=== PATIENT | female | born 1985 | race Caucasian/White ===

== ENCOUNTER 2016-10-06 12:47 | Inpatient (IN) ==
--- NOTE | 2016-10-06 13:30 | PROVIDER DOCUMENTATION ---
HPI-General Adult - General Chief Complaint: Altered Mental Status Stated Complaint: ams,possibe overdose Time Seen by Provider: 10/06/16 13:07 Source: patient Allergies/Adverse Reactions: Patient Allergies Allergy/AdvReac Type Severity Reaction Status Date / Time tetanus immune globulin Allergy RASH Verified 10/06/16 13:03 Home Medications: Home Medication List Medication Instructions Recorded Confirmed Last Taken Type Home Meds Unobtainable 10/06/16 10/06/16 Unknown History - History of Present Illness -Gen Adult Nature of Presenting Problems: Pt is 31 y/o F presents to the ED with AMS and possible overdose. Pt was dropped off by bystander at the ED. Pt was found unresponsive in the street. Pt had marijuana and meth in possession on arrival. Pt will not answer questions. Pt keeps repeating she is hot. Location of Pain/Injury: reports: none Pain Radiation: reports: no radiation Quality of Pain: reports: none Onset/Duration: reports: just prior to arrival Timing: reports: still present Context/Activities at Onset: reports: light activity Modifying Factors: improves with: nothing Associated Symptoms: reports: anxiety. denies: arm pain, back/neck pain, chest pain, constipation, cough, diaphoresis, diarrhea, dizziness, EENT symptoms, fatigue, fever/chills, genitourinary problems, headaches, heartburn, joint pain , loss of appetite, malaise, muscle aches, sinus congestion/drainage, nausea, rash, seizure, shortness of breath, sensory/motor loss, pain with inspiration, swelling/mass in abdomen, syncope, vomiting, weakness, trouble walking Similar Symptoms Previously?: No Recently seen or treated by another doctor?: No Review of Systems - Adult - REVIEW OF SYSTEMS - ADULT Constitutional: denies: chills, fever Eyes: denies: blurred vision, double vision Ears, Nose, Mouth & Throat: denies: ear pain, nose pain, throat pain Cardiovascular: reports: irregular heart rate (tachy). denies: chest pain, heart murmur Respiratory: denies: cough, shortness of breath, wheezing Gastrointestinal: denies: abdominal pain, diarrhea, nausea, vomiting Genitourinary: denies: dysuria, hematuria Musculoskeletal: denies: bone pain, joint pain, neck pain Integumentary: denies: hives, itching Neurological: denies: dizziness/vertigo, headache/migraines Psychiatric: reports: anxiety, alcohol/drug dependence. denies: suicidal thoughts Endocrine: reports: no symptoms reported Hematologic/Lymphatic: reports: no symptoms reported Allergic/Immunologic: reports: no symptoms reported All Other Systems: Reviewed and Negative Past History - Adult - PAST MEDICAL HISTORY-ADULT Review of Records: reports: Nursing Assessment Review, Medications Reviewed, Social history reviewed & non-contributory. Major Childhood Illnesses: reports: denies history Cardiovascular: reports: denies history Respiratory: reports: denies history Gastrointestinal: reports: denies history Obstetrical/Gynecological: reports: denies history Genitourinary: reports: denies history Musculoskeletal: reports: denies history Neurological: reports: denies history Endocrine/Immune: reports: denies history Other Conditions: reports: denies history - PRIOR SURGERIES/PROCEDURES Surgical/Procedure History: reports: appendectomy, hysterectomy, , tonsillectomy, breast, other - PRIOR HOSPITALIZATIONS Prior Hospitalizations: reports: for other non-related - IMMUNIZATION STATUS Childhood Immunizations: See Nurse Assessment Flu Vaccine: See Nurse Assessment - FAMILY HISTORY Family History: reviewed, not pertinent - SOCIAL HISTORY Smoking: cigarettes, greater than 1 pack/day Provider spent 3-5 mins advising pt. on dangers of tobacco.: Discussed manners to quit use, and f/u contacts for add'l counseling. Substance Use: marijuana, other (meth) Physical Exam-General - CONSTITUTIONAL General Appearance: anxious, combative (mild). negative: appears well (ill in appearance) - EYES Eyes: pink conjunctivae, fundi clear, no AV nicking - HEAD, EARS, NOSE, MOUTH & THROAT HENMT: normocephalic/atraumatic. negative: moist mucous membranes (dry mucous membranes) - NECK Neck: non-tender, full range of motion, supple, normal inspection - RESPIRATORY Respiratory: chest non-tender, lungs clear, normal breath sounds, no pleuratic chest pain, no respiratory distress, no accessory muscle use - CARDIOVASCULAR Cardiovascular: normal peripheral pulses, no edema, no gallop, no JVD, no murmur , tachycardia - GASTROINTESTINAL (ABDOMEN) Abdominal Exam: normal bowel sounds, non tender, soft, no organomegaly, no pulsatile mass - LYMPHATIC Lymphatic: no adenopathy - MUSCULOSKELETAL Back Exam: normal inspection, no CVA tenderness, no vertebral tenderness Extremity: normal range of motion, non-tender, normal gait, normal inspection, no pedal edema - SKIN Integumentary: normal color, normal turgor, warm/dry - NEUROLOGIC Neurologic: grossly normal - PSYCHIATRIC Psych/Mental Status: anxious, disheveled, tearful Progress - PLAN OF CARE/RESULTS Progress/Plan/Lab Results: Orders Category Date Time Status Cardiac Monitoring DIRECTED Care 10/06/16 13:18 Active Finger Stick Blood Sugar (ED) DIRECTED Care 10/06/16 13:18 Active Saline Loc NOW Care 10/06/16 13:18 Active CHEST-1 VIEW [RAD] Stat Exams 10/06/16 13:18 Ordered HEAD W/O CONTRAST [CT] Stat Exams 10/06/16 13:19 Ordered ABG [RESP] Routine Lab 10/06/16 13:18 Ordered ALCOHOL BLOOD Stat Lab 10/06/16 13:18 Ordered CBC WITH ELECTRONIC DIFF [HEME] Stat Lab 10/06/16 13:18 Ordered CK PROFILE [SP CHEM] Stat Lab 10/06/16 13:18 Ordered COMPREHENSIVE METABOLIC PANEL [CHEM] Stat Lab 10/06/16 13:18 Ordered LACTATE, PLASMA [CHEM] Stat Lab 10/06/16 13:18 Ordered [address]IME WITH INR PL [COAG] Stat Lab 10/06/16 13:[address] [COAG] Stat Lab 10/06/16 13:18 Ordered TROPONIN T Stat Lab 10/06/16 13:[address] W/POSS RFLX CULT [URINALYSIS] Stat Lab 10/06/16 13:18 Ordered URINE DRUG SCREEN PL Stat Lab 10/06/16 13:18 Ordered Pulse Oximetry Stat Oth 10/06/16 13:18 Active EKG [EKG] Stat Ther 10/06/16 13:18 Ordered Vital Signs - 24 hr 10/06/16 10/06/16 12:49 13:33 Temperature 97.5 F L Pulse Rate 140 H Respiratory 12 Rate Blood Pressure 169/101 O2 Sat by Pulse 90 L Oximetry Laboratory Tests 10/06/16 10/06/16 10/06/16 12:55 12:55 13:35 WBC RBC Hgb Hct MCV MCH MCHC RDW Std Deviation Plt Count MPV Immature Gran % (Auto) Neut % (Auto) Lymph % (Auto) [place] % (Auto) Eos % (Auto) Baso % (Auto) Immature Gran # (Auto) Neut # (Auto) Lymph # (Auto) [place] # (Auto) Eos # (Auto) Baso # (Auto) PT INR APTT (Factor Assay) Specimen Type Sample Site pH pCO2 pO2 HCO3 Base Excess Oxyhemoglobin ABG O2 Sat (Calculated) ABG O2 Saturation ABG Carboxyhemoglobin ABG Methemoglobin Florentino Test A-a O2 Difference Total Hemoglobin Lactate Blood Gas Modality FiO2 % Sodium 140 Potassium 3.5 Chloride 105 Carbon Dioxide 26 Anion Gap 9 BUN 10 Creatinine 0.6 Estimated GFR/1.73 m2 > 60 BUN/Creatinine Ratio 17 Glucose 209 H Calculated Osmolality 285 Calcium 8.4 L Total Bilirubin < 0.15 L AST 20 ALT 24 Alkaline Phosphatase 68 Creatine Kinase 60 Troponin T Total Protein 7.1 Albumin 4.0 Globulin 3.0 Albumin/Globulin Ratio 1.0 Plasma Lactate Urine Source CLEAN CATCH Urine Color YELLOW Urine Clarity CLEAR Urine pH 5.0 Ur Specific [place] 1.020 Urine Protein 2+(100 mg/dL) A Urine Ketones NEGATIVE Urine Blood NEGATIVE Urine Nitrite NEGATIVE Urine Bilirubin NEGATIVE Urine Urobilinogen NORMAL Urine Microscopic RBC Not Reportable Urine WBC TRACE A Urine Microscopic WBC <10 Ur Epithelial Cells >10 A Urine Glucose NEGATIVE Urine Opiates Screen NONE DETECTED Ur Oxycodone Screen NONE DETECTED Urine Methadone Screen NONE DETECTED Ur Barbituates Screen NONE DETECTED Ur Tricyclics Screen NONE DETECTED Ur Phencyclidine Scrn NONE DETECTED Ur Amphetamines Screen NONE DETECTED U Methamphetamines Scrn PRESUMPTIVE POSITIVE A Urine MDMA Screen NONE DETECTED U Benzodiazepines Scrn NONE DETECTED Urine Cocaine Screen PRESUMPTIVE POSITIVE A U Cannabinoids Screen PRESUMPTIVE POSITIVE A Plasma/Serum Ethyl Alc 10/06/16 10/06/16 10/06/16 13:35 13:35 13:35 WBC RBC Hgb Hct MCV MCH MCHC RDW Std Deviation Plt Count MPV Immature Gran % (Auto) Neut % (Auto) Lymph % (Auto) [place] % (Auto) Eos % (Auto) Baso % (Auto) Immature Gran # (Auto) Neut # (Auto) Lymph # (Auto) [place] # (Auto) Eos # (Auto) Baso # (Auto) PT INR APTT (Factor Assay) Specimen Type Sample Site pH pCO2 pO2 HCO3 Base Excess Oxyhemoglobin ABG O2 Sat (Calculated) ABG O2 Saturation ABG Carboxyhemoglobin ABG Methemoglobin Florentino Test A-a O2 Difference Total Hemoglobin Lactate Blood Gas Modality FiO2 % Sodium Potassium Chloride Carbon Dioxide Anion Gap BUN Creatinine Estimated GFR/1.73 m2 BUN/Creatinine Ratio Glucose Calculated Osmolality Calcium Total Bilirubin AST ALT Alkaline Phosphatase Creatine Kinase Troponin T < 0.010 Total Protein Albumin Globulin Albumin/Globulin Ratio Plasma Lactate 1.3 Urine Source Urine Color Urine Clarity Urine pH Ur Specific [place] Urine Protein Urine Ketones Urine Blood Urine Nitrite Urine Bilirubin Urine Urobilinogen Urine Microscopic RBC Urine WBC Urine Microscopic WBC Ur Epithelial Cells Urine Glucose Urine Opiates Screen Ur Oxycodone Screen Urine Methadone Screen Ur Barbituates Screen Ur Tricyclics Screen Ur Phencyclidine Scrn Ur Amphetamines Screen U Methamphetamines Scrn Urine MDMA Screen U Benzodiazepines Scrn Urine Cocaine Screen U Cannabinoids Screen Plasma/Serum Ethyl Alc 10/06/16 10/06/16 10/06/16 13:35 13:35 13:38 WBC 12.04 H RBC 4.41 Hgb 12.6 Hct 38.6 MCV 87.5 MCH 28.6 MCHC 32.6 L RDW Std Deviation 14.1 Plt Count 343 MPV 10.7 H Immature Gran % (Auto) 0.2 Neut % (Auto) 65.4 Lymph % (Auto) 25.7 [place] % (Auto) 7.0 Eos % (Auto) 1.2 Baso % (Auto) 0.5 Immature Gran # (Auto) 0.03 Neut # (Auto) 7.87 H Lymph # (Auto) 3.10 [place] # (Auto) 0.84 H Eos # (Auto) 0.14 Baso # (Auto) 0.06 PT 12.7 INR 0.92 APTT (Factor Assay) 24.9 Specimen Type ARTERIAL Sample Site R RADIAL pH 7.23 L pCO2 65 H* pO2 63 HCO3 23.3 Base Excess -1.7 Oxyhemoglobin 86.6 L* ABG O2 Sat (Calculated) 15.7 ABG O2 Saturation 91.8 L ABG Carboxyhemoglobin 4.50 H ABG Methemoglobin 1.2 Florentino Test YES A-a O2 Difference 5.0 Total Hemoglobin 12.9 Lactate 1.40 Blood Gas Modality ROOM AIR FiO2 % 21.0 Sodium Potassium Chloride Carbon Dioxide Anion Gap BUN Creatinine Estimated GFR/1.73 m2 BUN/Creatinine Ratio Glucose Calculated Osmolality Calcium Total Bilirubin AST ALT Alkaline Phosphatase Creatine Kinase Troponin T Total Protein Albumin Globulin Albumin/Globulin Ratio Plasma Lactate Urine Source Urine Color Urine Clarity Urine pH Ur Specific [place] Urine Protein Urine Ketones Urine Blood Urine Nitrite Urine Bilirubin Urine Urobilinogen Urine Microscopic RBC Urine WBC Urine Microscopic WBC Ur Epithelial Cells Urine Glucose Urine Opiates Screen Ur Oxycodone Screen Urine Methadone Screen Ur Barbituates Screen Ur Tricyclics Screen Ur Phencyclidine Scrn Ur Amphetamines Screen U Methamphetamines Scrn Urine MDMA Screen U Benzodiazepines Scrn Urine Cocaine Screen U Cannabinoids Screen Plasma/Serum Ethyl Alc - EKG 1 Time of EKG reading by physician:: 13:46 EKG Read and Signed by:: Lux Jha EKG Interpretation (*Must complete 3 of following elements*): Abnormal Rate: 109 Rhythm: sinus tachycardia Comments: otherwise normal ECG - XRAY 1 XRAY: Bilateral XRAY Study: Chest Impression: Normal XRAY Interpretation: NAD - CT/MRI 1 CT Study: Head Impression: Normal CT Results: negative - CONSULTS/PCP/HOSPITALIST Notification #1 *Consult/PCP/Hospitalist*: Dr. Hunter Time Discussed: 14:29 (Dr. Hunter accepted admit ) Reason/Comments: Dr. Jha consulted with Dr. Hunter about admit of PT Consult Disposition: Admit Departure - Departure Time of Disposition Order: 14:23 DIAGNOSIS: Metabolic acidosis, Drug abuse Altered mental status Qualifiers: Altered mental status type: unspecified Qualified Code(s): R41.82 - Altered mental status, unspecified Disposition: ADMITTED INPATIENT 09 Certified Medical Emergency: Emergent Condition: Stable Attestation - Scribe Verification/Attestation Scribe:: Nessa Valle Acting as Scribe for:: Lux Jha Scribe documention review:: This chart was documented by a scribe and accurately reflects the service the provider performed and the decisions made by the provider.
[2016-10-06 13:39] LABS: URINE CULTURE PL NEEDED? NO; URINE SOURCE CLEAN CATCH
[2016-10-06 13:43] LABS: BILIRUBIN URINE NEGATIVE (NEGATIVE); BLOOD URINE NEGATIVE (NEGATIVE); CLARITY CLEAR (CLEAR); COLOR YELLOW; GLUCOSE URINE NEGATIVE (NEGATIVE); LEUKOCYTES URINE TRACE (NEGATIVE); NITRITE URINE NEGATIVE (NEGATIVE); PROTEIN URINE 2+(100 mg/dL) mg/dL (NEGATIVE); UROBILINOGEN URINE NORMAL
[2016-10-06 13:44] LABS: URINE EPITHELIAL CELLS >10 /HPF (<10); URINE WBC <10 /HPF (<10)
[2016-10-06 13:45] LABS: MANUAL DIFF NEEDED? NO
[2016-10-06 13:46] LABS: UR AMPHETAMINES QUAL NONE DETECTED (NONE DETECT); UR BARBITUATES QUAL NONE DETECTED (NONE DETECT); UR BENZODIAZEPIN QUAL NONE DETECTED (NONE DETECT); UR CANNABINOIDS QUAL PRESUMPTIVE POSITIVE (NONE DETECT); UR COCAINE QUAL PRESUMPTIVE POSITIVE (NONE DETECT); UR MDMA QUAL NONE DETECTED (NONE DETECT); UR METHADONE QUAL NONE DETECTED (NONE DETECT); UR METHAMPHETAMINE QUAL PRESUMPTIVE POSITIVE (NONE DETECT); UR OPIATES QUAL NONE DETECTED (NONE DETECT); UR OXYCODONE QUAL NONE DETECTED (NONE DETECT); UR PCP QUAL NONE DETECTED (NONE DETECT); UR TCA QUAL NONE DETECTED (NONE DETECT)
[2016-10-06 13:47] LABS: BASO% 0.5 % (0.0-0.8); EOS# 0.14 X1000 (0.0-0.7); EOS% 1.2 % (0.0-10.0); HEMATOCRIT 38.6 % (37.0-47.0); HEMOGLOBIN 12.6 g/dL (12.0-16.0); IMM GRAN# 0.03 X1000 (0.0-0.04); IMM GRAN% 0.2 % (0.0-0.5); LYMPH% 25.7 % (20.5-51.1); MCH 28.6 PG (27-31); MCHC 32.6 g/dL (33-37); MCV 87.5 FL (81-99); MONO# 0.84 X1000 (0.11-0.59); MPV 10.7 FL (7.4-10.4); NEUT% 65.4 % (42.2-75.2); PLT 343 X1000 (130-400); RBC 4.41 XMIL (4.2-5.4)
[2016-10-06] MEDS ORDERED: ZOFRAN ONE (13:54)
[2016-10-06 13:56] LABS: BE -1.7 mmoll (-3.0-3.0); BLOOD TYPE ARTERIAL; METHB 1.2 % (0.0-1.5); O2(CT) 15.7 mL/dL (15.0-23.0); PO2(98.6) 63 mmHg (60-100); SAMPLE BLOOD; SAO2 91.8 % (95.0-100.0); THB 12.9 g/dL (11.5-17.4); pH(98.6) 7.23 (7.35-7.45)
--- NOTE | 2016-10-06 13:57 | EKG Report ---
Test Performed on : 10/06/2016 1:46:25 PM Test Reason : AMS Blood Pressure : / mmHG Vent. Rate : 109 BPM Atrial Rate : 109 BPM P-R Int : 134 ms QRS Dur : 088 ms QT Int : 354 ms P-R-T Axes : 050 042 056 degrees QTc Int : 476 ms Sinus tachycardia. Otherwise normal ECG No previous ECGs available Unconfirmed Result
[2016-10-06 13:59] LABS: CHLORIDE 105 mmol/L (98-107); POTASSIUM 3.5 mmol/L (3.5-5.1); SODIUM 140 mmol/L (136-145); TCO2 26 mmol/L (25-35)
[2016-10-06 14:00] LABS: AGAP 9; ALKALINE PHOSPHATASE 68 U/L (32-104); BUN 10 mg/dL (8-22); CALCIUM 8.4 mg/dL (8.8-10.2); CK PROFILE 60 U/L (24-173); COSMO 285; GOT 20 U/L (10-30); GPT 24 U/L (10-36); TOTAL BILIRUBIN < 0.15 mg/dL (0.20-1.00); TOTAL PROTEIN 7.1 g/dL (6.3-8.3)
[2016-10-06 14:11] LABS: MODALITY ROOM AIR
[2016-10-06 14:12] LABS: ALLEN TEST YES; DRAW SITE R RADIAL; PCO2(98.6) 65 mmHg (35-45)
[2016-10-06 14:13] LABS: INR 0.92 (0.86-1.15); PROTIME 12.7 Seconds (12.1-15.5)
[2016-10-06 14:14] LABS: PTT PL 24.9 Seconds (22.6-43.9)
--- NOTE | 2016-10-06 14:40 | Diag Imaging Result Document ---
PROCEDURE NAME: HEAD W/O CONTRAST - 10/06/[address]: COMPARISON: None. FINDINGS: The ventricles and sulci are normal in size and contour. There is no mass, hemorrhage, or evidence of acute ischemia. The bony calvaria is intact. The visualized paranasal sinuses and mastoid air cells are clear. IMPRESSION: Negative head CT.
--- NOTE | 2016-10-06 14:52 | Diag Imaging Result Document ---
PROCEDURE NAME: CHEST-1 VIEW - 10/06/2016 ERECT AP CHEST: FINDINGS: The inspiration is suboptimal. There is no evidence of acute cardiac or pulmonary disease. Compared to 09/06/2015, there has been no significant change in the appearance of the chest. IMPRESSION: No acute disease.
[2016-10-06] MEDS ORDERED: NS 1,000 ML IV ONE (14:57)
[2016-10-06] MEDS ORDERED: ZOFRAN IV ONE (14:57)
[2016-10-06 15:20] VITALS: BP 140/114
[2016-10-06 15:40] LABS: BILIRUBIN URINE NEGATIVE (NEGATIVE); BLOOD URINE NEGATIVE (NEGATIVE); CLARITY SL. CLOUDY (CLEAR); COLOR YELLOW; LEUKOCYTES URINE NEGATIVE (NEGATIVE); NITRITE URINE NEGATIVE (NEGATIVE); PROTEIN URINE 1+(30 mg/dL) mg/dL (NEGATIVE); UROBILINOGEN URINE NORMAL
[2016-10-06 15:54] LABS: URINE CULTURE PL NEEDED? YES; URINE EPITHELIAL CELLS <10 /HPF (<10); URINE SOURCE CATH; URINE WBC <10 /HPF (<10)
[2016-10-06] MEDS ORDERED: ZOFRAN ODT PO PRN (15:54)
== END 2016-10-06 17:03 | disposition left against medical advice (07) ==
LOC: P.ED 12:47 → P.ICU 14:43
PROVIDERS: ATTEND Internal Medicine

== ENCOUNTER 2019-11-22 09:50 | Inpatient (IN) ==
[2019-11-22] MEDS: NS 1,000 ML IV ONE ×2 (10:57→14:54)
[2019-11-22] MEDS ORDERED: VANCOMYCIN IV PER PHARMACY MISC SCH ×3 (11:00→15:00)
--- NOTE | 2019-11-22 11:09 | PROVIDER DOCUMENTATION ---
HPI-EENT General - General Chief Complaint: Abscess Stated Complaint: FACE SWELLING Time Seen by Provider: 11/22/19 10:38 Source: patient Allergies/Adverse Reactions: Patient Allergies Allergy/AdvReac Type Severity Reaction Status Date / Time tetanus immune globulin Allergy RASH Verified 04/02/18 14:31 prochlorperazine AdvReac VOMITING Verified 11/21/19 05:51 [From Compazine] Home Medications: Home Medication List Medication Instructions Recorded Confirmed Last Taken Type NK [No Home Medications] 04/02/18 11/22/19 Unknown History - History of Present Illness-EENT General Nature of Presenting Problem: Patient is a 34 yof who presents to the ED with facial cellulitis. Was admitted at [facility] for same yesterday and left AMA. States, "I need antibiotics and I will stay this time." Denies any other complaints. Review of Systems - Adult - REVIEW OF SYSTEMS - ADULT Constitutional: reports: no symptoms reported Eyes: reports: no symptoms reported Ears, Nose, Mouth & Throat: reports: see HPI Cardiovascular: reports: no symptoms reported Respiratory: reports: no symptoms reported Gastrointestinal: reports: no symptoms reported Genitourinary: reports: no symptoms reported Musculoskeletal: reports: no symptoms reported Integumentary: reports: no symptoms reported Neurological: reports: no symptoms reported Psychiatric: reports: no symptoms reported Endocrine: reports: no symptoms reported Hematologic/Lymphatic: reports: no symptoms reported Allergic/Immunologic: reports: no symptoms reported All Other Systems: Reviewed and Negative Past History - Adult - PAST MEDICAL HISTORY-ADULT Review of Records: reports: Nursing Assessment Review, Medications Reviewed Major Childhood Illnesses: reports: denies history Cardiovascular: reports: denies history Respiratory: reports: denies history Gastrointestinal: reports: hepatitis Obstetrical/Gynecological: reports: denies history Genitourinary: reports: denies history Musculoskeletal: reports: denies history Neurological: reports: denies history Psychiatric: reports: other (substance abuse) Endocrine/Immune: reports: denies history Other Conditions: reports: other (sepsis) - PRIOR SURGERIES/PROCEDURES Surgical/Procedure History: reports: appendectomy, hysterectomy, , tonsillectomy, breast, other - PRIOR HOSPITALIZATIONS Prior Hospitalizations: reports: for other non-related - IMMUNIZATION STATUS Childhood Immunizations: See Nurse Assessment Flu Vaccine: See Nurse Assessment - FAMILY HISTORY Family History: reviewed, not pertinent - SOCIAL HISTORY Smoking: cigarettes, less than 1 pack/day Physical Exam- EENT - Physical Exam EENT Initial Vital Signs Reviewed: Yes General Appearance: alert, no apparent distress. negative: lethargic, slow to respond Eye Exam: bilateral eye: other (bilateral scleral injection and periorbital edema) Nasal Exam: normal inspection Throat Exam: normal mouth inspection Neck: full range of motion, supple, normal inspection Respiratory: chest non-tender, lungs clear, normal breath sounds, no pleuratic chest pain, no respiratory distress, no accessory muscle use Cardiovascular: normal peripheral pulses, regular rate, rhythm, no gallop, no murmur Abdominal Exam: normal bowel sounds, non tender, soft Extremity: normal range of motion, non-tender, normal gait, normal inspection Integumentary: normal color, warm/dry, other (indurated abscess noted to right side of forehead). negative: cyanosis, diaphoresis, jaundice, mottled, pallor Neurologic: grossly normal, no motor/sensory deficits Psych/Mental Status: normal mood/affect, normal thought content, normal thought process, oriented x 3 Progress - PLAN OF CARE/RESULTS Progress/Plan/Lab Results: Vital Signs - 8 hr 11/22/19 09:53 Temperature 99.4 F Pulse Rate 93 H Respiratory Rate 18 Blood Pressure 134/89 O2 Sat by Pulse Oximetry 100 Laboratory Results - last 24 hr 11/22/19 11/22/19 12:16 12:16 WBC 15.90 H RBC 4.35 Hgb 12.1 Hct 38.0 MCV 87.4 MCH 27.8 MCHC 31.8 L RDW Std Deviation 13.5 Plt Count 346 MPV 10.7 H Immature Gran % (Auto) 0.3 Neut % (Auto) 79.3 H Lymph % (Auto) 13.5 L [place] % (Auto) 6.7 Eos % (Auto) 0.1 Baso % (Auto) 0.1 Immature Gran # (Auto) 0.04 Neut # (Auto) 12.61 H Lymph # (Auto) 2.14 [place] # (Auto) 1.07 H Eos # (Auto) 0.02 Baso # (Auto) 0.02 Sodium 138 Potassium 3.4 L Chloride 103 Carbon Dioxide 22 L Anion Gap 13 BUN 10 Creatinine 0.4 L Estimated GFR/1.73 m2 > 60 BUN/Creatinine Ratio 25 Glucose 205 H Calculated Osmolality 281 Calcium 8.7 L Total Bilirubin 0.60 AST 88 H ALT 127 H Alkaline Phosphatase 136 H Total Protein 8.1 Albumin 3.3 L Globulin 5.0 Albumin/Globulin Ratio 1.0 Orders Category Date Time Status CBC WITH DIFF [HEME] Stat Lab 11/22/19 12:16 Completed COMPREHENSIVE METABOLIC PANEL [CHEM] Stat Lab 11/22/19 12:16 Completed 0.9% Sodium Chloride Inj [Ns] 1,000 ml Med 11/22/19 10:57 Active IV 100 mls/hr Pharmacy Order [Vancomycin IV Per Pharmacy] Med 11/22/19 11:00 Ordered 1 each MISC DIRECTED Vancomycin 1 gm/Ns Med 11/22/19 12:00 Discontinued 1 gm in 250 ml IV ONCE Result Diagrams: 11/22/19 12:16 11/22/19 12:16 - REASSESSMENT Reassessment #1 Time Reassessed: 11:09 Status: other (Will page admitting HPS when pt placed in treatment room. Pt still currently in lobby. No need to repeat maxillofacial CT at this time.) Reassessment #2 Time Reassessed: 13:50 Status: other (Pt in agreement with plan to admit.) - CONSULTS/PCP/HOSPITALIST Notification #1 *Consult/PCP/Hospitalist*: Dr. Buckley Time Discussed: 13:50 Reason/Comments: admission- facial cellulitis Consult Disposition: Will see in ED, Admit Departure - Departure Date of Disposition Decision: 11/22/19 Time of Disposition Decision: 13:50 DIAGNOSIS: Facial cellulitis, Liver dysfunction, Hyperglycemia Disposition: ADMITTED INPATIENT 09 Certified Medical Emergency: Emergent Condition: Stable Referrals and Follow-Ups: None,PCP [Primary Care Provider] - Discharge Education: Steps to Quit Smoking, [id number] - Critical Care Note This patient required my direct & personal management of CC.: No Attestation - Physician/ SAMANTHA Attestation Patient care was provided by Advanced Practice Provider:: Yes Advanced Practice Provider:: Ramon Guerra Advanced Practice Provider documentation review:: The Mid-level provider docum entation, treatment plan and medical decision making was reviewed by the physician who agrees with all treatment and medical decision making by the MLP. The physician spent face to face time with patient:: No Advanced Practice Provider documentation review:: Supervising physician onsite and consulted in the evaluation and care of this patient. The physician did not have a face to face encounter with the patient.
[2019-11-22] MEDS ORDERED: VANCOMYCIN 1 GM/NS 1 GM/250 ML IVPB IV ONE ×4 (12:00→22:00)
[2019-11-22 12:36] LABS: BASO# 0.02 X1000 (0.0-0.2); BASO% 0.1 % (0.0-0.8); EOS# 0.02 X1000 (0.0-0.7); EOS% 0.1 % (0.0-10.0); HEMOGLOBIN 12.1 g/dL (12.0-16.0); IMM GRAN# 0.04 X1000 (0.0-0.04); IMM GRAN% 0.3 % (0.0-0.5); LYMPH# 2.14 X1000 (1.2-3.4); LYMPH% 13.5 % (20.5-51.1); MCH 27.8 PG (27-31); MCHC 31.8 g/dL (33-37); MCV 87.4 FL (81-99); MONO# 1.07 X1000 (0.11-0.59); MONO% 6.7 % (1.7-9.3); MPV 10.7 FL (7.4-10.4); NEUT# 12.61 X1000 (1.4-6.5); NEUT% 79.3 % (42.2-75.2); PLT 346 X1000 (130-400); RBC 4.35 XMIL (4.2-5.4); RDW 13.5 % (11.5-14.5)
[2019-11-22 12:51] LABS: AGAP 13; ALBUMIN 3.3 g/dL (3.5-5.0); ALKALINE PHOSPHATASE 136 U/L (32-104); BUN 10 mg/dL (8-22); CALCIUM 8.7 mg/dL (8.8-10.2); CHLORIDE 103 mmol/L (98-107); COSMO 281; CREATININE 0.4 mg/dL (0.5-0.9); ESTIMATED GFR > 60; GLUCOSE 205 mg/dL (70-104); GOT 88 U/L (10-30); GPT 127 U/L (10-36); POTASSIUM 3.4 mmol/L (3.5-5.1); SODIUM 138 mmol/L (136-145); TCO2 22 mmol/L (25-35); TOTAL PROTEIN 8.1 g/dL (6.3-8.3)
[2019-11-22] MEDS ORDERED: ZOFRAN IV ONE ×2 (14:39→18:17)
[2019-11-22] MEDS ORDERED: MORPHINE IV ONE ×2 (14:39→18:17)
[2019-11-22] MEDS ORDERED: ZOFRAN IV PRN (14:53)
[2019-11-22] MEDS ORDERED: NS 1,000 ML IV SCH (15:00)
[2019-11-22] MEDS: NS 1,000 ML IV SCH (16:50)
[2019-11-22] MEDS: MORPHINE IV PRN (21:05)
[2019-11-22] MEDS ORDERED: VANCOMYCIN 600 MG in NS 250 ML IV ONE (22:00)
[2019-11-23] MEDS: MORPHINE IV PRN ×8 (00:06→21:26)
[2019-11-23] MEDS: ZOFRAN IV PRN (00:15)
[2019-11-23] MEDS: NS 1,000 ML IV SCH ×2 (06:20→20:33)
[2019-11-23] MEDS ORDERED: VANCOMYCIN 1,200 MG in NS 250 ML IV SCH (10:00)
--- NOTE | 2019-11-23 10:15 | HISTORY AND PHYSICAL ---
CHIEF COMPLAINT: Facial swelling. HISTORY OF PRESENT ILLNESS: The patient is a 34-year-old very noncompliant individual. Stated that she was not going to stay in the hospital. She re-presented to the ER today noting that she needs antibiotics. Her face still hurting. States that she plans on staying in the hospital for treatment this time. ALLERGIES: Tetanus causing rash Compazine causing vomiting. MEDICATIONS: She is on no current medications. PAST MEDICAL HISTORY: Significant for hepatitis C and recently hepatitis A. She has got chronic substance abuse, recurrent sepsis. SURGICAL HISTORY: Appendectomy, hysterectomy, , tonsillectomy. REVIEW OF SYSTEMS: As noted above. Positive facial pain and numbness. She has swelling over both eyes causing headaches. Denies any fevers, chills. Denies dysuria, urinary frequency, urgency, constipation, melena, hematochezia. Denies weight loss. Denies chest pain, palpitations, shortness of breath. PHYSICAL EXAMINATION: VITAL SIGNS: Reviewed. Temperature 99.4 degrees, pulse 93, respiratory rate 18, BP 134/89, saturating 100% on room air. GENERAL: Patient is awake, pleasant, in no current respiratory distress. She is somewhat ill- appearing secondary to the swelling over her face. HEENT: Normocephalic. Bilateral eyes have some mild scleral injection, have moderate periorbital edema right greater than left. Warm to the touch, tender. Has what appears to be an abscess on the right side of the forehead. NECK: Supple. No JVD. CARDIOVASCULAR: Regular rate. No murmurs. CHEST: Clear and nonlabored. ABDOMEN: Soft, nondistended, nontender. EXTREMITIES: Moves all extremities. NEUROLOGIC: No focal changes. LABORATORIES: WBC 15, potassium 3.4. AST 88, ALT 127, alkaline phosphatase 136, albumin 3.3. She has recently had hepatitis panel demonstrating IgM positive for hepatitis A as well as positive for hepatitis C. ASSESSMENT: 1. Facial cellulitis. 2. Medical noncompliance. 3. Chronic substance abuse. 4. Hyperglycemia. 5. Hypokalemia. 6. Leukocytosis. 7. Sepsis. 8. Hepatitis A and hepatitis C. PLAN: We are going to admit the patient to the hospital, antibiotics, attempt pain control and we will follow. cc: MD SEAMUS Hinojosa
[2019-11-23] MEDS: VANCOMYCIN 1,200 MG in NS 250 ML IV SCH ×2 (10:43→21:28)
--- NOTE | 2019-11-23 12:09 | PROGRESS NOTE ---
DATE: 11/23/2019 SUBJECTIVE: I have seen and examined Ms. [place] this morning. Ms. [place] referred to have a lot of pain, especially on the forehead and into the eyes. She said she had a small boil on the right side of the forehead; she tried to pop it and it just gradually became worse. Ms. France presented in 2018 with a similar story and clinical presentation. At that time, she was found to also have MRSA infection to the boil. OBJECTIVE: Current vitals: Blood pressure is 128/66, pulse of 82, respiration is 19, temperature 98 degrees. General exam: Ms. France is a 34-year-old female. She is in bed in no distress. HEENT: Mucosa is pink and moist. Anicteric. Acyanotic. Neck: Supple. There is a swelling over the right side of the forehead almost on the hairline in, which is slightly fluctuant and is tender. There is also erythematous changes over both eyes with the eyes with minimal periorbital swelling. Chest: Clear to auscultation. No crepitations. No rhonchi. Cardiovascular: Regular rate and rhythm. GI: Abdomen is soft. Extremities: No pedal edema. CHAIN OFFBEARER: Patient is awake, alert, oriented. There is no focal deficit. LABORATORY DATA: WBC is 15.90. Rest of CBC is unremarkable. Chemistry is also reviewed. Potassium is mildly low. AST and ALT are minimally elevated. IMAGING STUDIES: No imaging studies at this time. ASSESSMENT: 1. Cellulitis to right side of the forehead associated with mild bilateral periorbital cellulitis. The patient had a similar presentation in 2018. Culture did grow methicillin- resistant Staphylococcus aureus. We still do not have any culture on her yet. She is currently on methicillin-resistant Staphylococcus aureus-covering drug. I would add Zosyn just to broaden it just in case it is a different pathogen. We will try and get cultures from the sites. 2. Recently treated for acute hepatitis A on background of chronic hepatitis C. 3. Social issues. Ms. France at this point refers to be homeless. We will get social work to evaluate the patient. cc: Boris Pennington MD
[2019-11-23] MEDS: ZOSYN 3.375 GM in NS 50 ML IV SCH ×2 (12:36→18:32)
[2019-11-23 14:57] LABS: HEMATOCRIT 38.6 % (37.0-47.0); HEMOGLOBIN 12.2 g/dL (12.0-16.0); MCH 28.2 PG (27-31); MCHC 31.6 g/dL (33-37); MCV 89.1 FL (81-99); MPV 10.6 FL (7.4-10.4); RBC 4.33 XMIL (4.2-5.4); RDW 13.8 % (11.5-14.5); WBC 11.49 X1000 (4.8-10.8)
[2019-11-23] MEDS: NICODERM PATCH TD SCH (15:14)
[2019-11-23 15:33] LABS: AGAP 9; ALB/GLOB RATIO 0.6; ALBUMIN 2.7 g/dL (3.5-5.0); ALKALINE PHOSPHATASE 132 U/L (32-104); BUN 7 mg/dL (8-22); CALCIUM 8.7 mg/dL (8.8-10.2); CHLORIDE 106 mmol/L (98-107); COSMO 275; CREATININE 0.6 mg/dL (0.5-0.9); ESTIMATED GFR > 60; GLUCOSE 84 mg/dL (70-104); GOT 64 U/L (10-30); GPT 104 U/L (10-36); MAGNESIUM 1.7 mg/dL (1.5-2.7); SODIUM 139 mmol/L (136-145); TCO2 24 mmol/L (25-35); TOTAL BILIRUBIN 0.51 mg/dL (0.20-1.00); TOTAL PROTEIN 7.4 g/dL (6.3-8.3)
[2019-11-24] MEDS: ZOSYN 3.375 GM in NS 50 ML IV SCH ×6 (00:38→21:50)
[2019-11-24] MEDS: MORPHINE IV PRN ×8 (00:38→21:47)
[2019-11-24] MEDS: NICODERM PATCH TD SCH ×2 (10:43→12:04)
[2019-11-24] MEDS: VANCOMYCIN 1,200 MG in NS 250 ML IV SCH ×2 (10:43→22:47)
[2019-11-24] MEDS: NS 1,000 ML IV SCH (10:47)
--- NOTE | 2019-11-24 14:24 | PROGRESS NOTE ---
DATE: 11/24/2019 SUBJECTIVE: I have seen and examined Ms. [place] today. Ms. France referred to be doing well. Denies any new complaints, except generalized pains. OBJECTIVE: Vital signs: Blood pressure 147/80, pulse of 82, respirations 20, temperature 97.3 degrees. General exam: Ms. France is a 34-year-old female. She is in bed in no distress. HEENT/neck: Mucosa is pink and moist. Anicteric. Acyanotic. Neck is supple. Forehead still has some swelling over the right side, almost at the hairline. There is a small central area of fluctuance with surrounding areas of erythematous changes. Swelling over both eyes looks a lot better today. Chest: Clear to auscultation. No crepitations. No rhonchi. Cardiovascular: Regular rate and rhythm. GI/Abdomen: Soft. Extremities: No pedal edema. BINDERY WORKER: Patient is awake, alert, oriented. LABORATORY DATA: None for today. ASSESSMENT: 1. Cellulitis to the right side of the forehead with a central area of fluctuation concerning for abscess formation associated with bilateral periorbital cellulitis. The patient is currently on antibiotics. The swelling looks slightly better; however, the area of fluctuance looks worse, so we will do a small bedside incision and drainage to relieve the pressure. 2. Recently treated for acute hepatitis A on background of hepatitis C. 3. Homeless. Social Work has been consulted. cc: Boris Pennington MD
--- NOTE | 2019-11-24 14:32 | OPERATIVE NOTE ---
PROCEDURE DATE: 11/24/2019 TIME OF PROCEDURE: 1:30 PROCEDURE TYPE: Bedside incision and drainage. Ms. France had been admitted for cellulitis to the face which seems to be slightly better but there is a central area of fluctuance and it was felt that there was purulence in there and needed to be released. This was explained to Ms. [place] who consented for the procedure. Initially Ms. [place] was given her regular IV pain medicine to help with procedure. The lesion site which was over the right forehead was cleaned with Povidine and a very small incision was made through the central area of swelling and immediately purulent material started to ooze out. The entire central area was expressed. Cultures were obtained. Ms. France tolerated the procedure very well, very minimal blood loss. The area was subsequently covered up. Will be pending the culture report from the sample. cc: Boris Pennington MD MTDD
[2019-11-24] MEDS: NORCO-7.5 PO PRN (18:47)
[2019-11-25] MEDS: MORPHINE IV PRN ×7 (00:51→20:38)
[2019-11-25] MEDS: NS 1,000 ML IV SCH ×2 (00:51→16:57)
[2019-11-25] MEDS: ZOFRAN IV PRN ×2 (01:00→06:49)
[2019-11-25] MEDS: NORCO-7.5 PO PRN ×4 (01:03→18:51)
[2019-11-25] MEDS: ZOSYN 3.375 GM in NS 50 ML IV SCH ×2 (03:55→10:06)
[2019-11-25] MEDS ORDERED: CELEBREX PO ONE (11:04)
[2019-11-25] MEDS: VANCOMYCIN 1,200 MG in NS 250 ML IV SCH ×2 (11:58→21:25)
--- NOTE | 2019-11-25 13:52 | PROGRESS NOTE ---
DATE: 11/25/2019 SUBJECTIVE: I have seen and examined Ms. France this morning. Ms. France refers to be doing well. Denies any new complaints. Swelling around the eye is significantly resolved. OBJECTIVE: Vital Signs: Blood pressure 107/53, pulse of 73, respirations are 18, temperature is 98.2 degrees. General Examination: Ms. France is as 34-year-old, female. She is in bed. No distress. HEENT: Mucosa is pink and moist. Anicteric. Acyanotic. Neck: Supple. Chest: Good air entry bilaterally. Cardiovascular: Regular rate and rhythm. GI: Abdomen was soft. Extremities: No pedal edema. TANK PUMPER: The patient is awake, alert, and oriented. There is no focal deficit. Forehead: The small swelling over the right forehead, which was lanced yesterday, continues to drain some mild purulence. Swelling has significantly reduced. Cultures: The wound culture showing gram-positive cocci, I understand they have called in to say it is an MRSA. ASSESSMENT: 1. Right forehead abscess with surrounding cellulitis. Culture positive for methicillin- resistant Staphylococcus aureus. The patient will continue with vancomycin. We will discontinue the Zosyn. We will wait for the identification and sensitivity for oral alternatives. 2. Recently treated hepatitis A on a background of chronic hepatitis C. 3. Homeless. PLAN: In general, Ms. France is doing well. The swelling over the forehead has significantly improved with the bedside I and D. The periorbital cellulitis has significantly resolved. The culture from the I and D is showing MRSA so Zosyn has been discontinued. We are going to continue with the vancomycin until we have the sensitivity for oral alternatives. Ms. France is a potential discharge tomorrow. Hopefully, social work can work on her social issues. cc: Boris Pennington MD
[2019-11-25] MEDS: NICODERM PATCH TD SCH (19:42)
[2019-11-26] MEDS: MORPHINE IV PRN ×2 (01:29→06:28)
[2019-11-26] MEDS: NORCO-7.5 PO PRN ×2 (01:29→09:50)
[2019-11-26] MEDS: NS 1,000 ML IV SCH (01:49)
[2019-11-26 07:52] VITALS: BP 139/74
[2019-11-26] MEDS ORDERED: CELEBREX PO SCH (09:00)
[2019-11-26] MEDS: NICODERM PATCH TD SCH ×2 (09:23→09:38)
--- NOTE | 2019-11-26 20:19 | DISCHARGE SUMMARY ---
ADMISSION DATE: 11/22/2019 DISCHARGE DATE: 11/26/2019 I have seen and examined Ms. [place] today. CONSULTATIONS DURING THIS ADMISSION: None. INVASIVE PROCEDURES DONE DURING THIS ADMISSION: Bedside incision and drainage of the forehead abscess was done. IMAGING STUDIES OF SIGNIFICANCE: None. MICROBIOLOGY DATA OF SIGNIFICANCE: The forehead I and D culture did grow MRSA. ADMISSION DIAGNOSES: 1. Facial cellulitis. 2. Medication noncompliance. 3. Chronic substance use and abuse. 4. Sepsis. DIAGNOSES AT THE TIME OF DISCHARGE: 1. Sepsis on presentation secondary to skin and soft tissue infection. 2. Right forehead abscess with surrounding cellulitis. Culture positive for MRSA. 3. Recently treated hepatitis A on background of chronic hepatitis C. 4. Chronic substance use and abuse. 5. Medical noncompliance. DISCHARGE MEDICATIONS: 1. Clindamycin 300 mg q.6 hourly. 2. [place] 7.5 every 6 hours p.r.n. 3. Celebrex 200 mg p.o. daily. 4. Lactobacillus 1 tablet p.o. daily. PRESENTING COMPLAINT: Facial swelling. HISTORY OF PRESENTING COMPLAINT: Ms. France is a 34-year-old female with history of chronic substance use and abuse, recently treated for hepatitis A, also has a history of chronic hepatitis C, comes in because of facial swelling. The patient was initially seen and treated at [facility] on transfer to [facility] for higher level of care. HOSPITAL COURSE: Ms. France was started on broad-spectrum IV antibiotics. The swelling continues to show some slow improvement. The forehead swelling had a central area of fluctuance, which we felt it was an abscess, so a bedside I and D was done by myself, and a lot of purulent material came out, was expressed. A culture was taken, which came back positive for MRSA. The patient was initially treated with IV vancomycin. This has been switched to p.o. clindamycin to complete the treatment. This morning, Ms. France refers to be feeling much better. The facial swelling has all reduced and gone. The forehead cellulitis is also improved. There is minimum drainage coming out of the I and D site. We think Ms. France is stable enough to be discharged. Medication compliance has been addressed as well as recommendation for substance abuse cessation has also been addressed. Time spent for discharge is 35 minutes. cc: Boris Pennington MD
== END 2019-11-26 10:25 | disposition home or self-care (01) | DRG 872 ==
LOC: P.ED 09:50 → SUATTDRO 15:13 → 3N 15:13
PROVIDERS: ATTEND Internal Medicine